=== PATIENT | male | born 1955 | race Caucasian/White ===

== ENCOUNTER 2022-05-06 13:31 | Outpatient (CLI) | payer OTHER, SELFPAY | END 2022-05-06 13:32 | disposition home or self-care (01) | LOC: AMB 05-20 07:44 | PROVIDERS: PCP Family Medicine; Visit Provider Family Medicine | DX: I95.9 Hypotension, unspecified (principal); R11.10 Vomiting, unspecified; R53.1 Weakness | CPT/HCPCS: A0425; A0427 ==

== ENCOUNTER 2022-05-06 14:05 | Observation (INO) | payer OTHER, SELFPAY ==
[2022-05-06] VITALS (9 sets, daily range): BP systolic 111–139; BP diastolic 61–76; PULSE 75–89; RESP 12–20; TEMP 36.2–36.9; O2SAT 90–95; BMI 40.9; BMI 41.9
--- NOTE | 2022-05-06 14:34 | ED.GENADULT ---
HPI - General Adult General Time Seen by Provider: 14:34 Date Seen: 05/06/22 Chief complaint: Nausea/Vomiting Stated complaint: Hypotensive Time Seen by Provider: 05/06/22 14:20 Source: patient Mode of arrival: EMS Limitations: physical limitation History of Present Illness HPI narrative: Patient is a 66-year-old white male with diabetes and renal failure who is on dialysis, was on dialysis today and felt nauseated had some vomiting, he was hypotensive in the 80s. That is improved now via ambulance. The patient got about group home through dialysis. He denies chest pain, shortness of breath, weakness or chills, COVID symptoms. He felt well when he entered dialysis, did not feel sick at all today Related Data Home Medications Medication Instructions Recorded Confirmed gabapentin 100 mg capsule 200 mg PO HS 05/06/22 05/06/22 insulin aspart U-100 100 unit/mL 20 - 25 unit subcut .with meals 05/06/22 05/06/22 (3 mL) subcutaneous pen (Novolog Flexpen U-100 Insulin aspart) insulin glargine 100 unit/mL (3 18 unit subcut Q12H 05/06/22 05/06/22 mL) subcutaneous pen (Lantus Solostar U-100 Insulin) oxybutynin chloride 5 mg tablet 5 mg PO TID PRN 05/06/22 05/06/22 oxycodone 5 mg capsule 5 - 10 mg PO Q6H 05/06/22 05/06/22 sevelamer carbonate 800 mg tablet 800 mg PO TID 05/06/22 05/06/22 simvastatin 40 mg tablet 40 mg PO HS 05/06/22 05/06/22 tamsulosin 0.4 mg capsule 0.4 mg PO HS PRN 05/06/22 05/06/22 torsemide 20 mg tablet 60 mg PO BID@,16 05/06/22 05/06/22 vitamin B comp no.3-folic acid 1 1 tab PO .with dinner 05/06/22 05/06/22 mg-vit C 60 mg-biotin 300 mcg tablet ([facility]) Allergies Allergy/AdvReac Type Severity Reaction Status Date / Time codeine Allergy Verified 05/06/22 14:19 Penicillins Allergy Verified 05/06/22 14:19 tramadol Allergy Verified 05/06/22 14:19 Review of Systems Status of ROS: Reports: 6 or more systems reviewed and unremarkable except as noted in History and below [facility] Medical History (Updated 05/06/22 @ 18:25 by Brit Ramos MD) Cellulitis of groin Cervical disc displacement Chronic pain of left knee End stage renal disease on dialysis Hyperlipidemia LDL goal <100 Morbid obesity with BMI of 50.0-59.9, adult Nephrolithiasis YESENIA (obstructive sleep apnea) Pulmonary nodule Stenosis of cervical spine region Type 2 diabetes mellitus Surgical History (Updated 05/06/22 @ 17:01 by Brit Ramos MD) H/O right inguinal hernia repair H/O shoulder surgery S/P left knee arthroscopy Family History (Updated 05/06/22 @ 17:02 by Brit Ramos MD) Mother Diabetes Heart disease Father Heart disease Sister Muscular dystrophy Social History (Updated 05/06/22 @ 17:31 by Brit Ramos MD) Narrative: - Angie. No tob, no EtOH or drug use. Full code. Currently on disability, used to farm. Are you following a diet prescribed by a doctor: Yes (renal) Smoking Status: Never smoker Second hand tobacco smoke exposure: No How often do you have a drink containing alcohol: never How often do you have six or more drinks on one occasion: Never AUDIT-C Alcohol total score: 0 Non-prescribed substance use: denies use Caffeine: No Are you now , , , , never or living with a partner: Social isolation score (0-1 are the most socially isolated patients): 1 service: No Exam Narrative: Exam Narrative: Objective: The patient is alert and oriented slightly pale Vital signs look unremarkable blood pressure 127/70 HEENT shows dry mucous membranes in the mouth chest is clear Heart rate and rhythm regular 2/6 systolic murmur occasional ectopic beat noted Abdomen obese nontender except a little bit in the epigastrium, no rebound, no palpable mass Extremities show trace edema neurologic appears grossly nonfocal Const: Vital Signs, click to edit/add: Vital Signs - 24 hr 05/06/22 14:21 05/06/22 14:29 05/06/22 15:02 Temperature 97.1 F L Pulse Rate [Right Pulse Oximeter] 75 79 79 Respiratory Rate 20 12 18 Blood Pressure [Ri ght Upper Arm] 127/70 136/76 113/62 Pulse Oximetry 91 94 90 Oxygen Delivery Me thod Room Air Room Air Room Air 05/06/22 15:30 05/06/22 16:00 Temperature Pulse Rate [Right Pulse Oximeter] 80 81 Respiratory Rate 20 16 Blood Pressure [Ri ght Upper Arm] 116/68 118/71 Pulse Oximetry 93 Oxygen Delivery Me thod Room Air Room Air Course Vital Signs Vital signs: Initial Vital Signs Temperature 97.1 F L 05/06/22 14:21 Temperature Source Temporal Artery Scan 05/06/22 14:21 Pulse Rate 75 05/06/22 14:21 Respiratory Rate 20 05/06/22 14:21 Blood Pressure 127/70 05/06/22 14:21 Blood Pressure Mean 89 05/06/22 14:21 Blood Pressure Position Sitting 05/06/22 14:21 Pulse Oximetry 91 05/06/22 14:21 Oxygen Delivery Method 05/06/22 14:21 Vital Signs Temperature 97.1 F L 05/06/22 14:21 Pulse Rate 75 05/06/22 14:21 Respiratory Rate 20 05/06/22 14:21 Blood Pressure 127/70 05/06/22 14:21 Pulse Oximetry 91 05/06/22 14:21 Oxygen Delivery Method 05/06/22 14:21 Temperature 98.4 F 05/06/22 19:37 Pulse Rate 80 05/06/22 19:37 Respiratory Rate 20 05/06/22 19:37 Blood Pressure 111/61 05/06/22 19:37 Pulse Oximetry 94 05/06/22 19:37 Oxygen Delivery Method 05/06/22 19:37 Medical Decision Making [facility] Narrative Medical decision making narrative: 66-year-old white male dialysis patient with diabetes with not feeling well, nausea, vomiting and brief hypotension, now improved patient did get Zofran EN route in the ambulance will give additional Zofran now, check an EKG, laboratory studies, troponin even OB elevated due likely to his renal failure, I think some IV fluid be indicated will give him 250 mL normal saline. Patient may need admission for observation given that he dialyzed at least partially today, I think he could probably get by for the next couple of days but will see how he response to treatment and to laboratory studies. Addendum: The patient feels a little bit better, but with his hypotensive episode I think he should be observed in the hospital, Dr. Ramos kindly agrees to follow, he did get half way through his dialysis I do not think he will need dialysis until his next scheduled time I anticipate he will be able to likely be discharged tomorrow. Addendum: The patient's EKG by my read shows low-voltage QRS limited R-wave progression anteriorly no acute ST T wave changes. His creatinine is elevated at 5. He feels much better but still given his hypotensive episode nausea vomiting I think he should be followed, likely his troponin will be significantly elevated given his creatinine, but this could be followed as well. He does not have chest pain. His proBNP is 18 40 C-reactive protein is 1.6, white count 88130, hemoglobin 11.4. Nonfasting glucose is 340, COVID test is negative. Lab Data Labs: Lab Results 05/06/22 05/06/22 05/06/22 Range/Units 14:45 14:45 14:46 WBC 11.89 H (4.50-11.00) K/uL RBC 3.54 L (4.30-5.90) m/uL Hgb 11.4 L (13.5-17.5) gm/dL Hct 34.0 L (37.0-53.0) % MCV 96 (80-100) fL MCH 32 (26-34) pg MCHC 34 (32-36) gm/dL RDW Coeff of Tirso 12.4 (11.5-15.5) % Plt Count 160 (140-440) K/uL Neut % (Auto) 75.7 H (42.0-72.0) % Lymph % (Auto) 14.3 L (20-44) % Perry % (Auto) 6.8 (0.0-11.0) % Eos % (Auto) 1.9 (0.0-7.0) % Baso % (Auto) 0.3 (0.0-3.0) % Neut # (Auto) 9.00 H (1.7-7.0) K/uL Lymph # (Auto) 1.70 (0.90-2.90) K/uL Perry # (Auto) 0.80 (0.00-0.90) K/UL Eos # (Auto) 0.20 (0.00-0.50) K/uL Baso # (Auto) 0.00 (0.00-0.30) K/uL Abs Immat Gran (auto) 0.12 (0.00-0.30) K/uL Sodium 136 (135-149) mmol/L Potassium 4.6 (3.6-5.1) mmol/L Chloride 96 (96-114) mmol/L Carbon Dioxide 27 (20-32) mmol/L BUN 46 H (7-30) mg/dL Creatinine 5.0 H (0.5-1.5) mg/dL Estimated Creat Clear 14.93 Estimated GFR 12 ml/min Glucose 340 H (60-115) mg/dL Lactate 1.6 (0.5-1.9) mmol/L Calcium 8.9 (8.4-10.6) mg/dL Total Bilirubin 0.4 (0.1-1.5) mg/dL Direct Bilirubin 0.4 (0.0-0.5) mg/dL AST 24 (12-35) U/L ALT 17 (4-50) U/L Alkaline Phosphatase 93 (40-150) U/L Troponin I 0.03 (0.01-0.04) ng/mL C-Reactive Protein 1.6 H (0.5-1.0) mg/dL NT-Pro-B Natriuret Pep 1840 H (0-125) PG/mL Total Protein 7.9 (6.0-8.3) g/dL Albumin 4.1 (3.3-5.0) g/dL Amylase 63 (18-89) U/L Lipase 68 (23-300) U/L SARS-CoV-2 (PCR) (Negative) 05/06/22 Range/Units 14:49 WBC (4.50-11.00) K/uL RBC (4.30-5.90) m/uL Hgb (13.5-17.5) gm/dL Hct (37.0-53.0) % MCV (80-100) fL MCH (26-34) pg MCHC (32-36) gm/dL RDW Coeff of Tirso (11.5-15.5) % Plt Count (140-440) K/uL Neut % (Auto) (42.0-72.0) % Lymph % (Auto) (20-44) % Perry % (Auto) (0.0-11.0) % Eos % (Auto) (0.0-7.0) % Baso % (Auto) (0.0-3.0) % Neut # (Auto) (1.7-7.0) K/uL Lymph # (Auto) (0.90-2.90) K/uL Perry # (Auto) (0.00-0.90) K/UL Eos # (Auto) (0.00-0.50) K/uL Baso # (Auto) (0.00-0.30) K/uL Abs Immat Gran (auto) (0.00-0.30) K/uL Sodium (135-149) mmol/L Potassium (3.6-5.1) mmol/L Chloride (96-114) mmol/L Carbon Dioxide (20-32) mmol/L BUN (7-30) mg/dL Creatinine (0.5-1.5) mg/dL Estimated Creat Clear Estimated GFR ml/min Glucose (60-115) mg/dL Lactate (0.5-1.9) mmol/L Calcium (8.4-10.6) mg/dL Total Bilirubin (0.1-1.5) mg/dL Direct Bilirubin (0.0-0.5) mg/dL AST (12-35) U/L ALT (4-50) U/L Alkaline Phosphatase (40-150) U/L Troponin I (0.01-0.04) ng/mL C-Reactive Protein (0.5-1.0) mg/dL NT-Pro-B Natriuret Pep (0-125) PG/mL Total Protein (6.0-8.3) g/dL Albumin (3.3-5.0) g/dL Amylase (18-89) U/L Lipase (23-300) U/L SARS-CoV-2 (PCR) Negative SARS-CoV-2 (Negative) Discharge Plan Discharge Clinical Impression: Acute nausea with nonbilious vomiting, Diabetes, Chronic kidney failure Prescriptions: No Action gabapentin 100 mg capsule 200 mg PO HS Label Comments: Currently at 2 tabs 05/06/22. TAKE ONE CAPSULE BY MOUTH AT BEDTIME FOR 7 DAYS THEN INCREASE TO 2 CAPS AT BEDTIME FOR 7 DAYS THEN THREE CAPSULES BY MOUTH AT BEDTIME torsemide 20 mg tablet 60 mg PO BID@09,16 Label Comments: TAKE THREE TABLETS BY MOUTH TWICE A DAY ON NON-DIALYSIS DAYS simvastatin 40 mg tablet 40 mg PO HS tamsulosin 0.4 mg capsule 0.4 mg PO HS PRN Label Comments: TAKE ONE CAPSULE BY MOUTH EVERY NIGHT AT BEDTIME NEEDED FOR STENT PAIN oxycodone 5 mg capsule 5 - 10 mg PO Q6H Label Comments: takes about 3 times a week. TAKE ONE TO TWO CAPSULES BY MOUTH EVERY 6 HOURS NEEDED FOR SEVERE PAIN ,*CAUTION: OPIOID. RISK OF OVERDOSE AND ADDICTION. oxybutynin chloride 5 mg tablet 5 mg PO TID PRN Label Comments: TAKE ONE TABLET BY MOUTH THREE TIMES A DAY NEEDED FOR BLADDER SPASMS insulin aspart U-100 [Novolog Flexpen U-100 Insulin] 100 unit/mL (3 mL) insulin pen 20 - 25 unit SUBCUT .with meals insulin glargine [Lantus Solostar U-100 Insulin] 100 unit/mL (3 mL) insulin pen 18 unit SUBCUT Q12H sevelamer carbonate 800 mg tablet 800 mg PO TID Label Comments: TAKE ONE TABLET BY MOUTH THREE TIMES A DAY WITH MEALS [facility] Rx 1-60-300 mg-mg-mcg tablet 1 tab PO .with dinner Label Comments: TAKE ONE TABLET BY MOUTH ONCE DAILY WITH DINNER Follow Up/Referrals: Tran Kign MD [Primary Care Provider] -
[2022-05-06] MEDS: ONDANSETRON 2 MG/ML inj 4 MG IVP (14:46)
[2022-05-06] MEDS: 0.9 % SODIUM CHLORIDE 500 ML 500 ML IV (14:46)
[2022-05-06 14:55] LABS: Lactate* 1.6 mmol/L (0.5-1.9)
[2022-05-06 15:07] LABS: Basophils Percent Auto 0.3 % (0.0-3.0); Eosinophils Percent Auto 1.9 % (0.0-7.0); Hemoglobin* 11.4 gm/dL (13.5-17.5); Immature Granulocytes Abs Auto 0.12 K/uL (0.00-0.30); Lymphocytes Percent Auto 14.3 % (20-44); Mean Corpuscular HGB Conc 34 gm/dL (32-36); Mean Corpuscular Hemoglobin 32 pg (26-34); Mean Corpuscular Volume 96 fL (80-100); Monocytes Percent Auto 6.8 % (0.0-11.0); Neutrophils Percent Auto 75.7 % (42.0-72.0); Platelet Count* 160 K/uL (140-440); RDW Coefficient of Variation % 12.4 % (11.5-15.5); Red Blood Count 3.54 m/uL (4.30-5.90); White Blood Count* 11.89 K/uL (4.50-11.00)
[2022-05-06 15:12] LABS: Slide Review Reflex No
[2022-05-06 15:17] LABS: Albumin* 4.1 g/dL (3.3-5.0); Chloride* 96 mmol/L (96-114); Sodium* 136 mmol/L (135-149)
[2022-05-06 15:18] LABS: Potassium* 4.6 mmol/L (3.6-5.1)
[2022-05-06 15:19] LABS: Amylase* 63 U/L (18-89)
[2022-05-06 15:20] LABS: Alkaline Phosphatase* 93 U/L (40-150); Aspartate Amino Transferase* 24 U/L (12-35); Bilirubin Direct* 0.4 mg/dL (0.0-0.5); Bilirubin Total* 0.4 mg/dL (0.1-1.5); Blood Urea Nitrogen* 46 mg/dL (7-30); Carbon Dioxide* 27 mmol/L (20-32); Est. Creatinine Clearance* 14.93; Estimated Glomerular Filt Rate 12 ml/min; Glucose* 340 mg/dL (60-115); Total Protein* 7.9 g/dL (6.0-8.3)
[2022-05-06 15:21] LABS: Alanine Aminotransferase* 17 U/L (4-50); Calcium* 8.9 mg/dL (8.4-10.6); Lipase* 68 U/L (23-300)
[2022-05-06 15:23] LABS: C Reactive Protein* 1.6 mg/dL (0.5-1.0)
[2022-05-06 15:29] LABS: NT Pro B Type NatriureticPept* 1840 PG/mL (0-125)
[2022-05-06 15:55] LABS: SARS PCR* Negative SARS-CoV-2 (Negative)
[2022-05-06 16:00] LABS: Troponin I* 0.03 ng/mL (0.01-0.04)
--- NOTE | 2022-05-06 17:15 | PM.IMHP1 ---
Hospitalist- H&P: HPI History of Present Illness Time Seen by Provider: 17:15 Date Seen: 05/07/22 Chief complaint: Hypotensive Narrative: John Iraheta is a 66 year old male suddenly got nauseous at hemodialysis today. He was told he was his blood pressure was low, he looked pale and sweaty. Dialysis was stopped early and he was sent to the ER. His dialysis was half complete today. He recalls having something similar during dialysis once in [place] at the beginning of March. At that time he was found to have kidney stones and had a stent placed. It sounds like a urethral stent because he says he took it out himself. He also recalls that he has some mild dizziness on his way to the bathroom at 4 am today that resolved on its own in less than a minute. He follows a renal diet, is pretty consistent in his routine and the amount of fluid that he drinks. He did have a [employer] meal once this past week. He denies caffeine use. He is still making urine and urinates about 5 times a day. He is already feeling back to his baseline, but wants to know why this happened and if it will keep happening during dialysis. Review of Systems Const: Denies: fever, chills, change in weight, fatigue, malaise or night sweats Eyes: Denies: change in vision or blurry vision Cardio: Denies: chest pain, palpitations, edema, swelling of feet/ankles or shortness of breath with exertion Resp: Denies: shortness of breath GI: Reports: abdominal pain (only with palpation in the ambulance after dialysis) and nausea; Denies: vomiting or bloating : Denies: painful urination, urinary frequency or urinary urgency Musculo: Denies: back pain or muscle cramps Integ/Breast: Denies: rash Neuro: Reports: dizziness (Dizzy upon getting up at 4 am to use bathroom. Went away after a minute.) and confusion; Denies: headache or numbness in extremities Endo: Denies: excessive urination or fatigue [facility] Medical History (Updated 05/06/22 @ 18:25 by Brit Ramos MD) Cellulitis of groin Cervical disc displacement Chronic pain of left knee End stage renal disease on dialysis Hyperlipidemia LDL goal <100 Morbid obesity with BMI of 50.0-59.9, adult Nephrolithiasis YESENIA (obstructive sleep apnea) Pulmonary nodule Stenosis of cervical spine region Type 2 diabetes mellitus Surgical History (Updated 05/06/22 @ 17:01 by Brit Ramos MD) H/O right inguinal hernia repair H/O shoulder surgery S/P left knee arthroscopy Family History (Updated 05/06/22 @ 17:02 by Brit Ramos MD) Mother Diabetes Heart disease Father Heart disease Sister Muscular dystrophy Social History (Updated 05/06/22 @ 17:31 by Brit Ramos MD) Narrative: - Angie. No tob, no EtOH or drug use. Full code. Currently on disability, used to farm. Are you following a diet prescribed by a doctor: Yes (renal) Smoking Status: Never smoker Second hand tobacco smoke exposure: No How often do you have a drink containing alcohol: never How often do you have six or more drinks on one occasion: Never AUDIT-C Alcohol total score: 0 Non-prescribed substance use: denies use Caffeine: No Are you now , , , , never or living with a partner: Social isolation score (0-1 are the most socially isolated patients): 1 service: No Meds Home Medications and Allergies Home Medications Medication Instructions Recorded Confirmed Type gabapentin 100 mg capsule 200 mg PO HS 05/06/22 05/06/22 History insulin aspart U-100 100 unit/mL 20 - 25 unit subcut .with meals 05/06/22 05/06/22 History (3 mL) subcutaneous pen (Novolog Flexpen U-100 Insulin aspart) insulin glargine 100 unit/mL (3 18 unit subcut Q12H 05/06/22 05/06/22 History mL) subcutaneous pen (Lantus Solostar U-100 Insulin) oxybutynin chloride 5 mg tablet 5 mg PO TID PRN 05/06/22 05/06/22 History oxycodone 5 mg capsule 5 - 10 mg PO Q6H 05/06/22 05/06/22 History sevelamer carbonate 800 mg tablet 800 mg PO TID 05/06/22 05/06/22 History simvastatin 40 mg tablet 40 mg PO HS 05/06/22 05/06/22 History tamsulosin 0.4 mg capsule 0.4 mg PO HS PRN 05/06/22 05/06/22 History torsemide 20 mg tablet 60 mg PO BID@09,16 05/06/22 05/06/22 History vitamin B comp no.3-folic acid 1 1 tab PO .with dinner 05/06/22 05/06/22 History mg-vit C 60 mg-biotin 300 mcg tablet ([facility]) Allergies Allergy/AdvReac Type Severity Reaction Status Date / Time codeine Allergy Verified 05/06/22 14:19 Penicillins Allergy Verified 05/06/22 14:19 tramadol Allergy Verified 05/06/22 14:19 Exam Narrative: Exam Narrative: General: [No acute distress.] [Awake alert oriented x3.] No diaphoresis. HEENT: [Normocephalic atraumatic], [pupils equally round and reactive to light and accommodation]. Oropharynx [clear]. Mucous membranes are [moist]. [No cervical lymphadenopathy, thyromegaly or carotid bruits]. No JVD. Cardiovascular: [Regular rate and rhythm]. [No murmurs, gallops, or rubs]. Chest: No increased work of breathing. [Clear to auscultation bilaterally. No crackles or wheezes]. Abdomen: Bowel sounds [present]. [Soft, nondistended, nontender although he jumps each time I press on his abdomen.] [No hepatosplenomegaly or masses]. Extremities: [No] edema, [no cyanosis or clubbing]. Skin: [No jaundice,] [no pallor,] [no rashes]. Neuro: There are no focal deficits. Romberg is negative. Gait is within normal limits. Cranial nerves 2-12 are intact. Extraocular movements are full. No nystagmus. No facial asymmetry. Tongue is midline. Strength is 5/5 in all 4 extremities. Const: Vital Signs, click to edit/add: Vital Signs - 24 hr 05/06/22 14:21 05/06/22 16:42 05/06/22 14:29 Temperature 97.1 F L 98.5 F Pulse Rate [Right Pulse Oximeter] 75 79 Pulse Rate [Right] 87 Respiratory Rate 20 18 12 Blood Pressure [Ri ght Arm] 139/72 Blood Pressure [Ri ght Upper Arm] 127/70 136/76 Pulse Oximetry 91 95 94 Oxygen Delivery Me thod Room Air Room Air Room Air 05/06/22 15:02 05/06/22 15:30 05/06/22 16:00 Temperature Pulse Rate [Right Pulse Oximeter] 79 80 81 Pulse Rate [Right] Respiratory Rate 18 20 16 Blood Pressure [Ri ght Arm] Blood Pressure [Ri ght Upper Arm] 113/62 116/68 118/71 Pulse Oximetry 90 93 Oxygen Delivery Me thod Room Air Room Air Room Air Hospitalist - H&P: Result Labs Labs: Short CBC 05/06/22 Range/Units 14:45 WBC 11.89 H (4.50-11.00) K/uL Hgb 11.4 L (13.5-17.5) gm/dL Hct 34.0 L (37.0-53.0) % Plt Count 160 (140-440) K/uL BMP 05/06/22 14:46 Sodium 136 Potassium 4.6 Chloride 96 Carbon Dioxide 27 BUN 46 H Creatinine 5.0 H Glucose 340 H Calcium 8.9 Cardiac Enzymes 05/06/22 Range/Units 14:46 Troponin I 0.03 (0.01-0.04) ng/mL Liver Function 05/06/22 Range/Units 14:46 Total Bilirubin 0.4 (0.1-1.5) mg/dL Direct Bilirubin 0.4 (0.0-0.5) mg/dL AST 24 (12-35) U/L ALT 17 (4-50) U/L Alkaline Phosphatase 93 (40-150) U/L Albumin 4.1 (3.3-5.0) g/dL ECG Attestation: I personally reviewed and interpreted this ECG as follows: (EKG shows normal sinus rhythm, 81 beats per minute, low-voltage QRS, septal infarct, age undetermined.) ECG interpretation date: 05/06/22 Assessment and Plan Assessment and plan (1) Acute nausea with nonbilious vomiting: Problem comment: during dialysis 05/06/22 Status: Acute Assessment and Plan: This has resolved with a small bolus of IVF in the ER. I have reviewed labs and EKG. I suspect this is secondary to dialysis. No further workup. Monitor overnight on tele and anticipate discharge home tomorrow. (2) Dialysis complication: Status: Acute (3) End stage renal disease on dialysis: Problem comment: stage 5, GFR less than 15 ml/min Status: Chronic (4) Type 2 diabetes mellitus: Problem comment: Diagnosed >10 years ago - care at [facility] [facility] Initial visit at [facility] 2013 with HgA1c >14 - had stopped taking meds Status: Chronic Assessment and Plan: Continue home medications and start an insulin sliding scale as well. (5) YESENIA (obstructive sleep apnea): Problem comment: 11/29/2009 [id number], Uses CPAP nightly Status: Chronic Assessment and Plan: Patient tells me that he is not going to bring his CPAP in tonight and wants oxygen instead. I informed him that I would rather him bring in his CPAP and that oxygen is not a good substitute in the setting of obstructive sleep apnea.
[2022-05-06 18:39] LABS: Appearance Urine Clear (Clear); Bilirubin Urine Negative (Negative); Color Urine Yellow (Yellow); Ketones Urine Negative (Negative); Leukocyte Esterase Urine Negative (Negative); Nitrite Urine Negative (Negative); Specific Gravity Urine 1.015 (1.000-1.030); Urobilinogen Urine 0.2 (0.2-1.0)
[2022-05-06 18:46] LABS: Amorphous Sediment Urine Few; Bacteria Urine Few; RBC Urine 0-2 (0-2); Squamous Epithelial Cell Urine Few (None-Few); WBC Urine 0-2 (0-5)
[2022-05-06] MEDS: SIMVASTATIN 40 MG TABLET PO (19:16)
[2022-05-06] MEDS: GABAPENTIN 100 MG CAPSULE 200 MG PO (19:16)
[2022-05-06] MEDS: OXYCODONE 5 MG TABLET PO (20:30)
[2022-05-06] MEDS: ACETAMINOPHEN 325 MG TABLET 650 MG PO (20:30)
[2022-05-06 21:57] LABS: Blood Urine 1+ (Negative); Glucose Urine 2+ (Negative); Protein Urine 2+ (Negative)
[2022-05-07 00:30] VITALS: BP 122/62; PULSE 73; RESP 16; TEMP 36.6; O2SAT 97
[2022-05-07 00:33] VITALS: PULSE 69
[2022-05-07 04:06] VITALS: BP 134/75; PULSE 74; RESP 16; TEMP 36.6; O2SAT 96
--- NOTE | 2022-05-07 04:09 | PC.NURSE ---
VSS 2LNC decreased to 0.5LNC at 0400. Declined niles Oxycodone. Up ad fredrick in room tolerating diet ind w/cares.
[2022-05-07 07:05] VITALS: PULSE 89
[2022-05-07 07:25] VITALS: BP 103/65; PULSE 76; RESP 20; TEMP 37.1; O2SAT 96
[2022-05-07] MEDS: TORSEMIDE 20 MG TABLET 60 MG PO (08:05)
--- NOTE | 2022-05-07 08:19 | P.DS_ITS ---
DS: Providers Provider Date Seen: 05/07/22 Date of admission: 05/06/22 16:07 Primary care physician: Tran King MD Admitting Clinician: Brit Ramos MD Attending Physician on discharge: Brit Ramos MD Date of Discharge: 05/07/22 DS: Diagnosis Discharge Diagnosis (1) Acute nausea with nonbilious vomiting: Status: Acute Problem details: during dialysis 05/06/22, resolved (2) End stage renal disease on dialysis: Status: Chronic Problem details: stage 5, GFR less than 15 ml/min, dialysis Friday (3) YESENIA (obstructive sleep apnea): Status: Chronic Problem details: 11/29/2009 [id number], Uses CPAP nightly, hypoxic overnight but normal oxygen saturations during the day DS: Summary Hospital Course Hospital Course: 66-year-old male admitted with vomiting that started while he was getting dialysis yesterday. He came to the emergency room for evaluation. Received a small amount of IV fluid. Symptoms resolved. He has been able to eat and drink overnight. Was noted to need a little oxygen overnight presumably secondary to sleep apnea. He has not been short of breath. He is maintaining his oxygen saturations on room air today. He has no other concerns and is anxious to go home. Status at Discharge Functional status at discharge: independent ambulation Overall status at discharge: patient is back to baseline Time Spent with Patient Time attestation: Total time spent providing and/or coordinating discharge services: Time spent: Less than 30 minutes Exam Narrative: Exam Narrative: He is alert and appears in no distress. Speech is normal. He is oriented to his circumstances. Breathing is unlabored. Const: Vital Signs, click to edit/add: Vital Signs - 24 hr 05/06/22 14:21 05/06/22 16:42 05/06/22 14:29 Temperature 97.1 F L 98.5 F Pulse Rate Pulse Rate [Right Pulse Oximeter] 75 79 Pulse Rate [Right] 87 Respiratory Rate 20 18 12 Blood Pressure [Ri ght Arm] 139/72 Blood Pressure [Ri ght Upper Arm] 127/70 136/76 Pulse Oximetry 91 95 94 Oxygen Delivery Me thod Room Air Room Air Room Air Oxygen Flow Rate 05/06/22 15:02 05/06/22 15:30 05/06/22 16:00 Temperature Pulse Rate Pulse Rate [Right Pulse Oximeter] 79 80 81 Pulse Rate [Right] Respiratory Rate 18 20 16 Blood Pressure [Ri ght Arm] Blood Pressure [Ri ght Upper Arm] 113/62 116/68 118/71 Pulse Oximetry 90 93 Oxygen Delivery Me thod Room Air Room Air Room Air Oxygen Flow Rate 05/06/22 18:51 05/06/22 19:37 05/06/22 19:15 Temperature 98.4 F Pulse Rate 89 Pulse Rate [Right Pulse Oximeter] Pulse Rate [Right] 80 Respiratory Rate 20 18 Blood Pressure [Ri ght Arm] 111/61 Blood Pressure [Ri ght Upper Arm] Pulse Oximetry 94 94 Oxygen Delivery Me thod Room Air Room Air Oxygen Flow Rate 05/07/22 00:29 05/07/22 00:30 05/07/22 00:33 Temperature 97.9 F Pulse Rate 69 Pulse Rate [Right Pulse Oximeter] Pulse Rate [Right] 73 Respiratory Rate 16 Blood Pressure [Ri ght Arm] 122/62 Blood Pressure [Ri ght Upper Arm] Pulse Oximetry 97 Oxygen Delivery Me thod Room Air Nasal Cannula Oxygen Flow Rate 2 05/07/22 04:06 Temperature 97.9 F Pulse Rate Pulse Rate [Right Pulse Oximeter] Pulse Rate [Right] 74 Respiratory Rate 16 Blood Pressure [Ri ght Arm] 134/75 Blood Pressure [Ri ght Upper Arm] Pulse Oximetry 96 Oxygen Delivery Me thod Nasal Cannula Oxygen Flow Rate 2 Documenting provider has reviewed patient's vital signs: yes DS: Data Data Completed and Pending Labs on day of discharge: Labs from last 24 hours 05/06/22 05/06/22 05/06/22 18:22 14:49 14:46 WBC RBC Hgb Hct MCV MCH MCHC RDW Coeff of Tirso Plt Count Neut % (Auto) Lymph % (Auto) [place] % (Auto) Eos % (Auto) Baso % (Auto) Neut # (Auto) Lymph # (Auto) [place] # (Auto) Eos # (Auto) Baso # (Auto) Abs Immat Gran (auto) Sodium 136 Potassium 4.6 Chloride 96 Carbon Dioxide 27 BUN 46 H Creatinine 5.0 H Estimated Creat Clear 14.93 Estimated GFR 12 Glucose 340 H Lactate Calcium 8.9 Total Bilirubin 0.4 Direct Bilirubin 0.4 AST 24 ALT 17 Alkaline Phosphatase 93 Troponin I 0.03 C-Reactive Protein 1.6 H NT-Pro-B Natriuret Pep 1840 H Total Protein 7.9 Albumin 4.1 Amylase 63 Lipase 68 Urine Color Yellow Urine Appearance Clear Urine pH 7.0 Ur Specific [place] 1.015 Urine Protein 2+ A Urine Glucose (UA) 2+ A Urine Ketones Negative Urine Blood 1+ A Urine Nitrite Negative Urine Bilirubin Negative Urine Urobilinogen 0.2 Ur Leukocyte Esterase Negative Urine RBC 0-2 Urine WBC 0-2 Ur Squamous Epith Cells Few Amorphous Sediment Few A Urine Bacteria Few A SARS-CoV-2 (PCR) Negative SARS-CoV-2 05/06/22 05/06/22 14:45 14:45 WBC 11.89 H RBC 3.54 L Hgb 11.4 L Hct 34.0 L MCV 96 MCH 32 MCHC 34 RDW Coeff of [place]so 12.4 Plt Count 160 Neut % (Auto) 75.7 H Lymph % (Auto) 14.3 L [place] % (Auto) 6.8 Eos % (Auto) 1.9 Baso % (Auto) 0.3 Neut # (Auto) 9.00 H Lymph # (Auto) 1.70 [place] # (Auto) 0.80 Eos # (Auto) 0.20 Baso # (Auto) 0.00 Abs Immat Gran (auto) 0.12 Sodium Potassium Chloride Carbon Dioxide BUN Creatinine Estimated Creat Clear Estimated GFR Glucose Lactate 1.6 Calcium Total Bilirubin Direct Bilirubin AST ALT Alkaline Phosphatase Troponin I C-Reactive Protein NT-Pro-B Natriuret Pep Total Protein Albumin Amylase Lipase Urine Color Urine Appearance Urine pH Ur Specific [place] Urine Protein Urine Glucose (UA) Urine Ketones Urine Blood Urine Nitrite Urine Bilirubin Urine Urobilinogen Ur Leukocyte Esterase Urine RBC Urine WBC Ur Squamous Epith Cells Amorphous Sediment Urine Bacteria SARS-CoV-2 (PCR) Discharge Plan Discharge Disposition: Home, Self-Care Date of Admission: 05/06/22 16:07 Primary Care Provider: Tran King Condition: Improved Anticipated Discharge Date/Time: 05/07/22 08:23 Discharge Medications: Continued gabapentin 100 mg capsule 200 mg PO HS Label Comments: Currently at 2 tabs 05/06/22. TAKE ONE CAPSULE BY MOUTH AT BEDTIME FOR 7 DAYS THEN INCREASE TO 2 CAPS AT BEDTIME FOR 7 DAYS THEN THREE CAPSULES BY MOUTH AT BEDTIME torsemide 20 mg tablet 60 mg PO BID@ Label Comments: TAKE THREE TABLETS BY MOUTH TWICE A DAY ON NON-DIALYSIS DAYS simvastatin 40 mg tablet 40 mg PO HS tamsulosin 0.4 mg capsule 0.4 mg PO HS PRN Label Comments: TAKE ONE CAPSULE BY MOUTH EVERY NIGHT AT BEDTIME NEEDED FOR STENT PAIN oxycodone 5 mg capsule 5 - 10 mg PO Q6H Label Comments: takes about 3 times a week. TAKE ONE TO TWO CAPSULES BY MOUTH EVERY 6 HOURS NEEDED FOR SEVERE PAIN ,*CAUTION: OPIOID. RISK OF OVERDOSE AND ADDICTION. oxybutynin chloride 5 mg tablet 5 mg PO TID PRN Label Comments: TAKE ONE TABLET BY MOUTH THREE TIMES A DAY NEEDED FOR BLADDER SPASMS insulin aspart U-100 [Novolog Flexpen U-100 Insulin] 100 unit/mL (3 mL) insulin pen 20 - 25 unit SUBCUT .with meals insulin glargine [Lantus Solostar U-100 Insulin] 100 unit/mL (3 mL) insulin pen 18 unit SUBCUT Q12H sevelamer carbonate 800 mg tablet 800 mg PO TID Label Comments: TAKE ONE TABLET BY MOUTH THREE TIMES A DAY WITH MEALS Denae-Kalina Rx 1-60-300 mg-mg-mcg tablet 1 tab PO .with dinner Label Comments: TAKE ONE TABLET BY MOUTH ONCE DAILY WITH DINNER Discharge Orders: Discharge Order (Routine); Ordered 05/07/22 Ordered By: Bradley Villegas Follow Up Appointments: Tran King MD [Primary Care Provider] - Forms: [facility] Info Instructions
--- NOTE | 2022-05-07 11:09 | PC.NURSE ---
Please see eMar for pt's SS insulin and Levemir insulin doses given for BG of 256 prior to bkfst. Eval by Dr. Villegas. Pt refused his scheduled oxycodone. Pt and verbalized understanding of d/c diagnosis, home meds, f/up and symptoms to report urgently. Pt discharged via w/c with all belongings @10:02 to own home with as transportation.
== END 2022-05-07 10:00 | disposition home or self-care (01) ==
LOC: ED 14:49 → MEDSURG 16:08
PROVIDERS: Admitting Provider Family Medicine; Emergency Provider Family Medicine; PCP Family Medicine; Visit Provider Family Medicine
DX: T82.49XA Other complication of vascular dialysis catheter, initial encounter (principal); R11.2 Nausea with vomiting, unspecified; G47.33 Obstructive sleep apnea (adult) (pediatric); Z99.2 Dependence on renal dialysis; N18.6 End stage renal disease; E11.9 Type 2 diabetes mellitus without complications; Z79.4 Long term (current) use of insulin; I95.9 Hypotension, unspecified; R77.8 Other specified abnormalities of plasma proteins; Z20.822 Contact with and (suspected) exposure to COVID-19; R74.8 Abnormal levels of other serum enzymes; E78.5 Hyperlipidemia, unspecified
CPT/HCPCS: 36415; 80048; 80076; 81001; 82150; 82947; 83605; 83690; 83880; 84484; 85025; 86140; 87086; 87635; 93005; 96361; 96372; 96374; 99284; G0378; A9270; J2405; J7120

== ENCOUNTER 2022-12-23 10:34 | Outpatient (CLI) | payer MEDICARE, BC, SELFPAY | END 2022-12-23 10:35 | disposition home or self-care (01) | LOC: AMB 12-25 13:58 | PROVIDERS: PCP Family Medicine; Visit Provider Emergency Medicine | DX: I95.9 Hypotension, unspecified (principal); R10.9 Unspecified abdominal pain | CPT/HCPCS: A0425; A0427 ==

== ENCOUNTER 2022-12-23 16:10 | Outpatient (CLI) | payer MEDICARE, BC, SELFPAY | END 2022-12-23 16:11 | disposition home or self-care (01) | LOC: AMB 12-25 14:17 | PROVIDERS: PCP Family Medicine; Visit Provider Family Medicine | DX: R10.9 Unspecified abdominal pain (principal) | CPT/HCPCS: A0425; A0426 ==

== ENCOUNTER 2023-02-14 08:26 | Outpatient (CLI) | payer OTHER, BC, SELFPAY ==
--- OUTSIDE RECORDS SUMMARY | 2023-02-19 10:19 | XMS_ITS | Continuity of Care Document ---
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 Role Phone Nichol Ozuna MD Unavailable Unavailable Allergies, Adverse Reactions, Alerts Substance Reaction Status Criticality codeine Hives/rash Active No Information Penicillins Hives/rash Active No Information Medications Medication Instructions Dosage Effective Dates (start - stop) Status Comments SIMVASTATIN (unknown strength) Not Available - Active AMRIX (unknown strength) Not Available - Active FUROSEMIDE (unknown strength) Not Available - Active GABAPENTIN (unknown strength) Not Available - Active METOPROLOL SUCCINATE (unknown strength) Not Available - Active OXYCODONE HCL (unknown strength) Not Available - Active Procedures Procedure Date Office/Outpatient Visit,[facility] 2015 Advance Directives Directive Yes / No Effective Date File Name No Information Encounters Encounter Description Practice Location Reason(s) For Visit Diagnoses Date Provider Providers Copied on Encounter Office/Outpati ent Visit,[facility], [facility] , [address], [place], [place], [id number], [place] tel:[phone] [facility] - [facility] Spinal stenosis, cervical regionRadic ulopathy, cervical region Laith Gandara. [facility], [address], [place], [place], [id number], [place]. tel:[phone] Referring Provider: Maximino Ordonez [facility] [address] [place], [address]. tel:[phone] Family History Family Member Type Diagnosis Age At Onset No Information Payers Payer name Insurance type Covered democrat ID Authoryasmeen galo(s) Medical Assistance [facility] [id number] Social History Type Description Quantity Date Captured Comments Alcohol Use Details Unknown Caffeine Use Details Unknown Tobacco Use Status Never smoked tobacco 2015 Smoking Status Never smoker Non-Smoking Tobacco Use Details : No Details Available : No Details Available Sex Male Vital Signs Date / Time: Height Weight BMI Pulse Rate Blood Pressure Temperature Respiratory Rate Body Surface Area Head Circumference Head Circ. Percentile Wt./Danny. Percentile BMI percentile Pulse Ox Inhaled Ox 8:23 AM 68.25 in 151.772 kg (334.60 lbs) 50.5 1 kg/m eter (2) 115 /min 157/97 mm[Hg] Chief Complaint And Reason For Visit No Information Reason For Referral Reason For Referral No Information Plan Of Treatment Date Type Action Status No Information History Of Present Illness Encounter Date Complaint History Of Prese nt Illness No Information Functional Status Date Functional Assessmen t No Information Instructions Date Instruction Additional Infor mation Instructed to return to General Practitioner timeframe: 1 Month. Related to Unspecified Essential Hypertension Weight Management Education Rela kendra to Overweight Weight management: I nstructed to return to General Practitioner timeframe: 1 Month. Related to Overweight Blood Pressure Management Relate d to Unspecified Essential Hypertension Assessments Type Assessment Date assessment Spinal stenosis, cervical region assessment Radiculopathy, cervical region O Patient Care Teams Name Effective Dates (start - stop) Status Members No Information
== END 2023-02-14 08:27 | disposition home or self-care (01) ==
LOC: AMB 02-19 10:16
PROVIDERS: PCP Family Medicine; Visit Provider Family Medicine
DX: I95.9 Hypotension, unspecified (principal)
CPT/HCPCS: A0425; A0429